=== PATIENT | male | born 1945 | race Caucasian/White ===

== ENCOUNTER 2017-10-19 16:15 | Inpatient (IN) | payer MEDICARE ==
[~2017-10-19] VITALS: Ht 182.9 cm; Wt 108.9 kg
[2017-10-19] MEDS ORDERED: METO50TA29 PO (18:08)
[2017-10-19] MEDS ORDERED: INSU100V13 SQ (18:08)
[2017-10-19] MEDS ORDERED: ATOR10TA60 PO (18:08)
[2017-10-19] MEDS ORDERED: ASPI81TA50 PO (18:08)
[2017-10-19] MEDS ORDERED: LISI1TAB5 PO (18:08)
[2017-10-19] MEDS ORDERED: ARIP30TA4 PO (18:08)
[2017-10-19] MEDS ORDERED: NICO1PAT27 TD (18:08)
[2017-10-19] MEDS ORDERED: LEVO75TA5 PO (18:08)
[2017-10-19] MEDS ORDERED: TAMS0.4C2 PO (18:08)
[2017-10-19] MEDS ORDERED: LOPE2CAP PO (18:08)
[2017-10-19] MEDS ORDERED: TIOT18CA IH (18:08)
[2017-10-19] MEDS ORDERED: MELA3TAB2 PO (18:08)
[2017-10-19] MEDS ORDERED: FURO20TA3 PO (18:08)
[2017-10-19] MEDS ORDERED: CLON0.3T PO (18:08)
[2017-10-19] MEDS ORDERED: CLON0.5T3 PO (18:08)
[2017-10-19] MEDS ORDERED: METF500T4 PO (18:08)
[2017-10-19] MEDS ORDERED: CLOM50TA2 PO (18:08)
[2017-10-19] MEDS ORDERED: FENO135C PO (18:08)
[2017-10-19] MEDS ORDERED: CLON1TAB3 PO (20:45)
[2017-10-19] MEDS ORDERED: CLOM75CA2 PO (20:45)
[2017-10-20] MEDS ORDERED: ACETAMINOPHEN 325 MG TABLET PO PRN (00:30)
[2017-10-20] MEDS ORDERED: LOPERAMIDE 2 MG CAPSULE PO PRN (00:30)
[2017-10-20] MEDS ORDERED: MAG HYDROX/AL HYDROX/SIMETH 30 ML ORAL.SUSP PO PRN (00:30)
[2017-10-20] MEDS ORDERED: MAGNESIUM HYDROXIDE 2,400 MG/30 ML ORAL.SUSP. PO PRN (00:30)
[2017-10-20] MEDS ORDERED: METHYL SALICYLATE/MENTHOL TOPICAL OINTMENT 29GM TUBE. TP PRN (00:30)
[2017-10-20] MEDS: clonazePAM 1 MG TABLET PO PRN ×4 (00:51→21:20)
[2017-10-20] MEDS: MELATONIN 3 MG TABLET PO PRN (00:52)
[2017-10-20 01:11] VITALS: BP 167/65
[2017-10-20 01:12] VITALS: BP 150/82
[2017-10-20 02:54] LABS: BACTERIA,URINE 0 /HPF (0-FEW); BILIRUBIN,URINE NEG (NEG); CLARITY,URINE CLEAR; COLOR,URINE YELLOW; GLUCOSE,URINE NEG (NEG); NITRITE,URINE NEG (NEG); RBC,URINE 0 /HPF (0-2); SQUAMOUS EPITHELIAL CELL,UR OCC /LPF; UROBILINOGEN,URINE 0.2 mg/dL (0.2 mg/dL); WBC,URINE 0 /HPF (0-4)
[2017-10-20] MEDS: LEVOTHYROXINE 75 MCG TABLET PO SCH (05:48)
[2017-10-20 06:08] VITALS: BP 176/82
--- NOTE | 2017-10-20 06:47 | EKG ---
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
[2017-10-20] MEDS: IPRATRPIUM/ALBUTEROL 0.5/2.5MG 3 ML NEBU. NEB SCH ×4 (08:00→20:46)
[2017-10-20] MEDS: hydroCHLOROthiazide 12.5 MG CAPSULE PO SCH ×2 (08:01→20:31)
[2017-10-20] MEDS: metFORMIN 500 MG TABLET PO SCH ×2 (08:01→18:20)
[2017-10-20] MEDS: TAMSULOSIN 0.4 MG CAP.ER.24H. PO SCH (08:01)
[2017-10-20] MEDS: ASPIRIN ENTERIC COATED 81 MG TABLET.DR. PO SCH (08:01)
[2017-10-20] MEDS: FUROSEMIDE 20 MG TABLET PO SCH (08:01)
[2017-10-20] MEDS: LISINOPRIL 20 MG TABLET PO SCH ×2 (08:01→20:31)
[2017-10-20] MEDS: METOPROLOL TART IMMED RELEASE 50 MG TABLET PO SCH ×2 (08:01→20:31)
[2017-10-20] MEDS: ARIPiprazole 15 MG TABLET PO SCH (08:02)
[2017-10-20] MEDS: NICOTINE 7MG PATCH. TD SCH (08:02)
[2017-10-20] MEDS ORDERED: cloNIDine HCL 0.1 MG TABLET PO SCH (09:00)
[2017-10-20] MEDS ORDERED: NON FORMULARY ITEM (Tiotropium Bromide (Spiriva) 18 MCG) IH SCH (09:00)
[2017-10-20] MEDS: CLOMIPRAMINE HCL 25 MG PO SCH (09:21)
[2017-10-20] MEDS: INSULIN DETEMIR 300 UNITS/3 ML INSULN.PEN. SQ SCH ×2 (09:29→20:55)
[2017-10-20 11:16] LABS: BASO % 1 % (0-3); EOS # 0.1 x10^3/uL (0.0-0.7); EOS % 1 % (0-3); HEMATOCRIT 34.7 % (39.0-53.0); HEMOGLOBIN 11.9 g/dL (13.0-17.5); LYMPH # 0.4 x10^3/uL (1.0-4.8); LYMPH % 8 % (24-48); MEAN CORPUSCULAR HEMOGLOBIN 28 pg (25-35); MEAN CORPUSCULAR HGB CONC 34 g/dL (31-37); MEAN CORPUSCULAR VOLUME 80 fL (79-100); MONO # 0.3 x10^3/uL (0.0-1.1); MONO % 6 % (0-9); NEUT # 4.3 x10^3uL (1.8-7.7); NEUT % 85 % (31-73); PLATELET COUNT 182 x10^3/uL (140-400); RED BLOOD COUNT 4.32 x10^6/uL (4.30-5.70); RED CELL DISTRIBUTION WIDTH 16.4 % (11.5-14.5)
[2017-10-20 11:30] LABS: ALBUMIN 3.4 g/dL (3.4-5.0); ALBUMIN/GLOBULIN RATIO 0.8 (1.0-1.7); CALCIUM 9.5 mg/dL (8.5-10.1); CREATININE 1.1 mg/dL (0.7-1.3); MAGNESIUM 1.9 mg/dL (1.8-2.4); POTASSIUM 3.8 mmol/L (3.5-5.1); TOTAL BILIRUBIN 0.2 mg/dL (0.2-1.0); TOTAL PROTEIN 7.6 g/dL (6.4-8.2)
[2017-10-20 14:21] LABS: THYROID STIM HORMONE (TSH) 3.12 uIU/mL (0.358-3.740)
[2017-10-20 16:16] VITALS: BP 156/75
[2017-10-20 17:09] LABS: T3 TOTAL 62 ng/dL (71-180); THYROXINE 6.5 ug/dL (4.5-12.0)
--- NOTE | 2017-10-20 20:02 | PDOC ---
Exam Note: Darren Note: Please also refer to the separate dictated note~for this date of service dictated separately.~Patient seen individually. Discussed the patient with Nursing staff reviewed the chart.~Reviewed interim history and current functioning. Reviewed vital signs,~Labs/ Radiology~and current medications noted below. Continue current treatment with the changes noted in the dictated addendum note Assessment: Vital Signs: Vital Signs Date Time Temp Pulse Resp B/P (MAP) Pulse Ox O2 Delivery O2 Flow Rate FiO2 10/20/17 16:16 97.4 70 19 156/75 (102) 96 10/20/17 10:23 Room Air Labs: Laboratory Tests Test 10/20/17 02:45 10/20/17 07:28 10/20/17 10:20 10/20/17 11:21 Urine Collection Type Void Urine Color Yellow Urine Clarity Clear Urine pH 7.0 Urine Specific Warden 1.020 Urine Protein >100 mg/dl (NEG-TRACE) Urine Glucose (UA) Neg mg/dL (NEG) Urine Ketones (Stick) Neg mg/dL (NEG) Urine Blood Neg (NEG) Urine Nitrite Neg (NEG) Urine Bilirubin Neg (NEG) Urine Urobilinogen Dipstick 0.2 mg/dL (0.2 mg/dL) Urine Leukocyte Esterase Neg (NEG) Urine RBC 0 /HPF (0-2) Urine WBC 0 /HPF (0-4) Urine Squamous Epithelial Cells Occ /LPF Urine Bacteria 0 /HPF (0-FEW) Glucose (Fingerstick) 66 mg/dL (70-99) L 228 mg/dL (70-99) H White Blood Count 5.0 x10^3/uL (4.0-11.0) Red Blood Count 4.32 x10^6/uL (4.30-5.70) Hemoglobin 11.9 g/dL (13.0-17.5) L Hematocrit 34.7 % (39.0-53.0) L Mean Corpuscular Volume 80 fL (79-100) Mean Corpuscular Hemoglobin 28 pg (25-35) Mean Corpuscular Hemoglobin Concent 34 g/dL (31-37) Red Cell Distribution Width 16.4 % (11.5-14.5) H Platelet Count 182 x10^3/uL (140-400) Neutrophils (%) (Auto) 85 % (31-73) H Lymphocytes (%) (Auto) 8 % (24-48) L Monocytes (%) (Auto) 6 % (0-9) Eosinophils (%) (Auto) 1 % (0-3) Basophils (%) (Auto) 1 % (0-3) Neutrophils # (Auto) 4.3 x10^3uL (1.8-7.7) Lymphocytes # (Auto) 0.4 x10^3/uL (1.0-4.8) L Monocytes # (Auto) 0.3 x10^3/uL (0.0-1.1) Eosinophils # (Auto) 0.1 x10^3/uL (0.0-0.7) Basophils # (Auto) 0.0 x10^3/uL (0.0-0.2) Sodium Level 136 mmol/L (136-145) Potassium Level 3.8 mmol/L (3.5-5.1) Chloride Level 99 mmol/L (98-107) Carbon Dioxide Level 30 mmol/L (21-32) Anion Gap 7 (6-14) Blood Urea Nitrogen 13 mg/dL (8-26) Creatinine 1.1 mg/dL (0.7-1.3) Estimated GFR (Cockcroft-Gault) 66.0 BUN/Creatinine Ratio 12 (6-20) Glucose Level 216 mg/dL (70-99) H Calcium Level 9.5 mg/dL (8.5-10.1) Magnesium Level 1.9 mg/dL (1.8-2.4) Iron Level 39 ug/dL (65-175) L Total Iron Binding Capacity 410 ug/dL (250-450) Iron Saturation 10 % (15-34) L Total Bilirubin 0.2 mg/dL (0.2-1.0) Aspartate Amino Transferase (AST) 17 U/L (15-37) Alanine Aminotransferase (ALT) 16 U/L (16-63) Alkaline Phosphatase 44 U/L (46-116) L Total Protein 7.6 g/dL (6.4-8.2) Albumin 3.4 g/dL (3.4-5.0) Albumin/Globulin Ratio 0.8 (1.0-1.7) L Triglycerides Level 265 mg/dL (0-150) H Cholesterol Level 137 mg/dL (0-200) LDL Cholesterol, Calculated 54 mg/dL (0-100) VLDL Cholesterol, Calculated 53 mg/dL (0-40) H Non-HDL Cholesterol Calculated 107 mg/dL (0-129) HDL Cholesterol 30 mg/dL (40-60) L Cholesterol/HDL Ratio 4.0 Thyroid Stimulating Hormone (TSH) 3.120 uIU/mL (0.358-3.740) Thyroxine (T4) 6.5 ug/dL (4.5-12.0) Total Triiodothyronine (TT3) 62 ng/dL (71-180) L RPR Titer Additional Testing Non reactive (Non Reactive) Test 10/20/17 16:55 10/20/17 19:17 Glucose (Fingerstick) 97 mg/dL (70-99) 147 mg/dL (70-99) H Current Medications: Meds: Current Medications Acetaminophen (Tylenol) 650 mg PRN Q6HRS PRN PO PAIN / TEMP; Start 10/20/17 at 00:30 Multi-Ingredient Ointment (Analgesic [place]) 1 stefanie PRN QID PRN TP MUSCLE PAIN; Start 10/20/17 at 00:30 Al Hydroxide/Mg Hydroxide (Mylanta Plus Xs) 15 ml PRN AFTMEALHC PRN PO DYSPEPSIA Last administered on 10/20/17 03:39; Start 10/20/17 at 00:30 Magnesium Hydroxide (Milk Of Magnesia) 2,400 mg PRN QHS PRN PO CONSTIPATION; Start 10/20/17 at 00:30 Clonazepam (KlonoPIN) 1 mg PRN TID PRN PO ANXIETY / AGITATION Last administered on 10/20/17 16:15; Start 10/20/17 at 00:30 Aripiprazole (Abilify) 30 mg DAILY PO Last administered on 10/20/17 08:02; Start 10/20/17 at 09:00 Melatonin 3 mg PRN QHS PRN PO INSOMNIA Last administered on 10/20/17 00:52; Start 10/20/17 at 01:00 Aspirin (Aspirin Enteric Coated) 81 mg DAILY PO Last administered on 08:01; Start 10/20/17 at 09:00 Atorvastatin Calcium (Lipitor) 10 mg QHS PO ; Start 10/20/17 at 21:00 Furosemide (Lasix) 20 mg DAILY PO Last administered on 10/20/17 08:01; Start 10/20/17 at 09:00 Levothyroxine Sodium (Synthroid) 75 mcg DAILY07 PO Last administered on 05:48; Start 10/20/17 at 07:00 Loperamide HCl (Imodium) 2 mg PRN Q2HR PRN PO DIARRHEA; Start 10/20/17 at 00: 30 Metformin HCl (Glucophage) 1,000 mg BIDWMEALS PO Last administered on 18:20; Start 10/20/17 at 08:00 Metoprolol Tartrate (Lopressor) 50 mg BID PO Last administered on 10/20/17 08 :01; Start 10/20/17 at 09:00 Nicotine (Nicoderm Cq 7mg) 1 patch DAILY TD Last administered on 10/20/17 08: 02; Start 10/20/17 at 09:00 Tamsulosin HCl (Flomax) 0.4 mg DAILY PO Last administered on 10/20/17 08:01; Start 10/20/17 at 09:00 Clomipramine HCl (Anafranil) 375 mg DAILY PO Last administered on 10/20/17 09 :21; Start 10/20/17 at 09:00 Clonidine HCl (Catapres) 0.3 mg BID PO Last administered on 10/20/17 08:02; Start 10/20/17 at 09:00; Stop 10/20/17 at 14:34; Status DC Fenofibrate (Tricor) 145 mg QHS PO ; Start 10/20/17 at 21:00 Insulin Detemir (Levemir) 110 units BID SQ Last administered on 10/20/17 09: 29; Start 10/20/17 at 09:00 Lisinopril (Prinivil) 20 mg BID PO Last administered on 10/20/17 08:01; Start 10/20/17 at 09:00 Non-Formulary Medication 18 mcg DAILY IH ; Start 10/20/17 at 09:00; Status UNV Hydrochlorothiazide (Microzide) 12.5 mg BID PO Last administered on 10/20/17 08:01; Start 10/20/17 at 09:00 Albuterol/ Ipratropium (Duoneb) 3 ml RTQID NEB Last administered on 12/10/17at 10:22; Start 10/20/17 at 08:00 Clonidine HCl (Catapres) 0.3 mg TID PO ; Start 10/20/17 at 21:00 Active Scripts Active Reported Clonazepam 1 Mg Tablet 1 Mg PO PRN TID PRN Clomipramine Hcl 75 Mg Capsule 375 Mg PO DAILY Melatonin 3 Mg Tablet 3 Mg PO PRN QHS PRN Loperamide (Loperamide Hcl) 2 Mg Capsule 2 Mg PO PRN Q2HR PRN MDD 16mg Spiriva (Tiotropium [place]) 18 Mcg Cap.w.dev 18 Mcg IH DAILY Furosemide 20 Mg Tablet 20 Mg PO DAILY Trilipix (Fenofibric Acid (Choline)) 135 Mg Capsule.dr 135 Mg PO HS Clonidine Hcl 0.3 Mg Tablet 0.3 Mg PO BID Atorvastatin Calcium 10 Mg Tablet 10 Mg PO QHS Aspir-Low (Aspirin) 81 Mg Tablet.dr 81 Mg PO DAILY Abilify (Aripiprazole) 30 Mg Tablet 30 Mg PO DAILY Tamsulosin Hcl 0.4 Mg Cap.er.24h 0.4 Mg PO DAILY NICODERM CQ 7mg (Nicotine) 1 Each Patch.td24 1 Patch TD DAILY Metoprolol Succinate ( Xl ) (Metoprolol Succinate) 50 Mg Tab.er.24h 50 Mg PO BID Metformin Hcl 500 Mg Tablet 1,000 Mg PO BIDWMEALS Levothyroxine Sodium 75 Mcg Tablet 75 Mcg PO DAILY07 Levemir (Insulin Detemir) 100 Unit/1 Ml Vial 110 Unit SQ BID Lisinopril-Hctz 20-12.5 Mg Tab (Lisinopril/Hydrochlorothiazide) 1 Each Tablet 1 Tab PO BID I have reviewed the current psychotropics carefully including drug interactions. Risk benefit ratio favors no change other than as noted in my dictated progress note. Diagnosis: Problems: (1) Major depressive disorder, recurrent episode LYNSEY COPELAND MD Oct 20, 2017 20:02
[2017-10-20] MEDS: cloNIDine HCL 0.1 MG TABLET PO SCH (20:30)
[2017-10-20] MEDS: ATORVASTATIN CALCIUM 10 MG TABLET. PO SCH (20:33)
[2017-10-20] MEDS: FENOFIBRATE NANOCRYSTALLIZED 145 MG TABLET PO SCH (20:33)
--- NOTE | 2017-10-20 22:49 | HP ---
ADMIT DATE: 10/20/2017 This note covers elements not covered in my initial note 10/20/2017. The patient was seen individually evening of 10/20/2017. Previously discussed with nursing staff several times, both prior to the patient's admission to review admission criteria since then. As the patient has been intermittently agitated and Zyprexa was added p.r.n. IDENTIFYING DATA: The patient is 72-year-old male referred to us from [facility] where he presented following an overdose of 35-40 tablets of tramadol. He has been increasingly anxious, obsessive, states he has not been taking his Anafranil for a few days. Symptoms have been getting worse with his mood, anxiety, thus prompting the overdose in a suicide attempt. CHIEF COMPLAINT: "Yes, I became depressed because I was not taking my medications. I need to get back on them, I will be better." HISTORY OF PRESENT ILLNESS: Reportedly, the patient has been followed at the [facility] for a long time by Dr. Anabelle Mauro and his primary care physician, Dr. Desire Benjamin. From the information available to me the patient lives at home with his and adult son and the son has had increasing psychosocial problems including substance abuse, which has been very overwhelming for the patient. In addition, he has been noncompliant with his psychotropics and became progressively depressed with sleep and appetite changes made the above "serious overdose attempt. No clear history of bipolar disorder or homicidal ideation. Cognitively, he has been reasonably intact other than some short term memory deficits. PAST PSYCHIATRIC HISTORY: As above. MEDICAL HISTORY: Hypertension, diabetes mellitus, COPD, history of PTSD, hypothyroidism, hyperlipidemia. Rectal cancer with colostomy, lung cancer, left lower lobe lobectomy, melanoma. History of alcohol abuse with 30 years of sobriety history of lymphedema. Accu-Cheks a.c. and at bedtime. DIET: Regular, takes his medications whole. Code status is full. DRUG ALLERGIES: Negative. CURRENT PSYCHOTROPICS: Abilify 30 mg a day, imipramine 375 mg daily and we will check a blood level Klonopin 1 mg t.i.d. p.r.n., melatonin 3 mg at bedtime p.r.n. FAMILY HISTORY: Noncontributory. SOCIAL HISTORY: Alcohol history noted above. Living arrangements noted above. He has another son who is an adult and not living with the patient. The patient is a from the [place]. MENTAL STATUS EXAM: The patient was seen individually. Ambulates with a walker reasonably oriented. Speech is coherent, had some latency. Abstraction fair, computation impaired, language function intact, attention span short. Mood and affect somewhat obsessive, anxious, depressed. No active suicidal or homicidal ideation. Attention span short. Language function intact. LABORATORY DATA: Reviewed. IMPRESSION: Major depressive disorder, recurrent, status post suicide attempt, but has a history of obsessive-compulsive disorder; anxiety disorder, unspecified; impulse control disorder, unspecified. Rest as above. PLAN: Admit to Geropsychiatry unit at [facility]. I will see the patient daily individually from a psychiatric standpoint. Continue current psychotropics check clomipramine blood level. Consider adjusting as needed. Consider a mood stabilizer. Medical followup with Dr. Juarez/Dr. Swanson. MAN Rosalino COPELAND MD DR: JEANNIE/nts JOB#: [id number] / [id number]
[2017-10-20 23:08] LABS: HEMOGLOBIN A1C 7.6 % (4.8-5.6)
--- NOTE | 2017-10-21 01:05 | CONS ---
DATE OF CONSULTATION: 10/20/2017 REASON FOR CONSULTATION: Medical management. HISTORY OF PRESENT ILLNESS: The patient is a 72-year-old male patient who apparently was admitted to [facility] following an intentional overdose and tramadol. He reports that he took about 35-40 tablets stating that he wanted to . According to the patient, he has been experiencing much anxiety, difficulty sleeping. He has a history of obsessive-compulsive disorder along with anxiety. He reports an obsession with tenriism. He had to dislike and disbelieve of tenriism. He reports that once had had a __ that were religiously preoccupied and that he confused him. His Mi was also present in the room. Mi reports that the patient did stop taking medication and he became increasingly anxious prior to admission, and basically after stabilization, he was transferred to [facility] for inpatient psychiatric stabilization. PAST MEDICAL HISTORY: Significant for hypertension, type 2 diabetes, COPD, hypothyroidism, hyperlipidemia, rectal cancer, status post colostomy, lung cancer, status post left lower lobe lobectomy, has melanoma and history of alcohol abuse; however, he is sober for the last 30 years. Also has lymphedema. PAST PSYCHIATRIC HISTORY: As history significant for depression, anxiety, posttraumatic stress disorder and severe obsessive compulsive disorder. PAST SURGICAL HISTORY: Significant for left lower lobe lobectomy, partial colectomy and colostomy. ALLERGIES: He has no known drug allergies. FAMILY HISTORY: Positive for mood disorder both in his mother and father. His mother of Alzheimer disease and father of a heart attack. SOCIAL HISTORY: The patient lives with his and they have 2 grown sons. He is retired and he served as a marine. He served actually in [place] [employer]. MEDICATIONS: He is currently on following medications: He is on Abilify 30 mg once a day, aspirin 81 mg once a day, atorvastatin calcium 10 mg at bedtime, clomipramine 375 mg once a day, clonazepam 1 mg 3 times a day, clonidine 0.3 mg twice a day, fenofibric acid (Trilipix) 135 mg at bedtime, furosemide 20 mg once a day, Levemir insulin 110 units subcutaneously twice a day, levothyroxine sodium 75 mcg once a day, lisinopril/hydrochlorothiazide 20/12.5 mg twice a day, loperamide 2 mg every 2 hours as needed, melatonin 3 mg at bedtime, metformin 1000 mg twice a day with meals, metoprolol succinate 50 mg once a day and Nicoderm patch was 70 mg topically once a day, and tamsulosin 0.4 mg at bedtime and Spiriva [place] 1 inhalation once a day. REVIEW OF SYSTEMS: The patient denied any blurring of vision, cataract, glaucoma or macular degeneration. Denied any earache, tinnitus or sensorineural deafness. Denied any nosebleeds, stuffy nose or postnasal drip. Denied any sore throat, sore tongue, toothache, hoarseness of voice or difficulty swallowing. Denied any nausea, vomiting, diarrhea or constipation. Denied any hematemesis, melena or hematochezia. Denied any dysuria, frequency or hematuria. Denied any chest pain, shortness of breath, orthopnea, paroxysmal nocturnal dyspnea. Denied any cough, phlegm or hemoptysis. Denied any chills, rigors or fever. PHYSICAL EXAMINATION: GENERAL: When I examined him, he was sitting comfortably in his chair in no apparent respiratory distress, slightly pale, but no jaundice, cyanosis, or thyromegaly. No jugular venous distension. No limb edema. VITAL SIGNS: His heart rate was 58, blood pressure 176/82, his temperature was 98.6, respiratory rate was 16, and oxygen saturation was 97%. HEAD, EYES, EARS, NOSE AND THROAT: Showed normocephalic, atraumatic. NECK: Supple. HEART: Showed normal first and second heart sounds with no gallop, rub or murmur. CHEST: Clear to auscultation. No crepitation or rhonchi. ABDOMEN: Distended, soft with colostomy in the left lower quadrant. There is no guarding or rigidity. No organomegaly. All hernial orifices intact. Bowel sounds normal. NEUROLOGIC: He was awake, alert, responding appropriately. Her cranial nerves intact. EXTREMITIES: She moves extremities without difficulty, ambulates with a walker. LABORATORY DATA: Showed that his white cell count was 5000, hemoglobin 12, hematocrit 35, MCV 80 and platelet count of 182,000. His serum sodium was 136, potassium 3.8, chloride 99, bicarbonate 30, anion gap of 7, BUN 13, creatinine 1.1, estimated GFR was 66 mL per minute. His glucose was 216, calcium was 9.5, magnesium was 1.9. Serum iron was 39, TIBC was 410 and percent saturation was 10%. Total bilirubin, AST, ALT, alkaline phosphatase were normal. Total protein was 7.6, albumin 3.4. His serum triglycerides 165, total cholesterol 137, LDL was 54, VLDL was 53, HDL cholesterol was 30, ratio was 4. TSH was 3.120. His urinalysis was essentially unremarkable. The urine was yellow, clear with a pH of 7, specific gravity 1.020. There is a moderate amount of protein. The urine was negative for glucose, ketones, blood, nitrite, bilirubin and leukocyte esterase. There are no wbc's, no rbc's, no bacteria. IMPRESSION: In summary, this is a 72-year-old male patient who was admitted on account of overdose on tramadol. He apparently took about 35-40 tablets in a suicidal attempt due to increased anxiety and obsessive compulsive disorder. He apparently has a multitude of medical problems including hypertension, diabetes, COPD, hypothyroidism, hyperlipidemia. He survived with rectal cancer. He has had colostomy. He also has survived with lung cancer, status post left lower lobe lobectomy and melanoma that was resected. All in all, he seemed to be medically stable. His blood pressure is suboptimally controlled. He is on hydrochlorothiazide, lisinopril, clonidine, and we could increase his clonidine to 0.3 mg 3 times a day and he is also on Toprol that can be increased. Thank you Dr. Ackerman for allowing me to participate in the care of this patient. JAQUELINE PENALOZA MD DR: ALISHA/dheeraj JOB#: [id number] / [id number]
[2017-10-21] MEDS: LEVOTHYROXINE 75 MCG TABLET PO SCH (05:18)
[2017-10-21] MEDS: IPRATRPIUM/ALBUTEROL 0.5/2.5MG 3 ML NEBU. NEB SCH ×4 (05:49→19:48)
[2017-10-21 05:53] VITALS: BP 183/83
--- NOTE | 2017-10-21 07:39 | RAD ---
CT of the head without contrast, 10/20/2017: History: Mental status change There is moderate bilateral cerebral atrophy. The ventricles are within normal limits in size. There is no shift of the midline structures. There is no evidence of acute intracranial hemorrhage or mass effect. IMPRESSION: 1. Cerebral atrophy. 2. No acute intracranial abnormality is detected. PQRS Compliance Statement: One or more of the following individualized dose reduction techniques were utilized for this examination: 1. Automated exposure control 2. Adjustment of the mA and/or kV according to patient size 3. Use of iterative reconstruction technique
[2017-10-21] MEDS: ASPIRIN ENTERIC COATED 81 MG TABLET.DR. PO SCH (08:13)
[2017-10-21] MEDS: METOPROLOL TART IMMED RELEASE 50 MG TABLET PO SCH ×2 (08:13→20:48)
[2017-10-21] MEDS: hydroCHLOROthiazide 12.5 MG CAPSULE PO SCH ×2 (08:13→20:47)
[2017-10-21] MEDS: TAMSULOSIN 0.4 MG CAP.ER.24H. PO SCH (08:13)
[2017-10-21] MEDS: FUROSEMIDE 20 MG TABLET PO SCH (08:13)
[2017-10-21] MEDS: LISINOPRIL 20 MG TABLET PO SCH ×2 (08:14→20:47)
[2017-10-21] MEDS: ARIPiprazole 15 MG TABLET PO SCH (08:14)
[2017-10-21] MEDS: metFORMIN 500 MG TABLET PO SCH ×2 (08:14→16:52)
[2017-10-21] MEDS: NICOTINE 7MG PATCH. TD SCH (08:14)
[2017-10-21] MEDS: cloNIDine HCL 0.1 MG TABLET PO SCH ×3 (08:15→20:47)
[2017-10-21] MEDS: CLOMIPRAMINE HCL 25 MG PO SCH (09:34)
[2017-10-21] MEDS: INSULIN DETEMIR 300 UNITS/3 ML INSULN.PEN. SQ SCH ×2 (09:37→20:52)
[2017-10-21] MEDS: clonazePAM 1 MG TABLET PO PRN ×2 (13:57→21:07)
[2017-10-21 15:55] VITALS: BP 168/76
[2017-10-21] MEDS ORDERED: CHOLECALCIFEROL (VITAMIN D3) 50,000 UNIT CAPSULE PO SCH (17:30)
[2017-10-21] MEDS: CYANOCOBALAMIN (VITAMIN B-12) 1,000 MCG/ML VIAL IM SCH (17:55)
[2017-10-21] MEDS: ATORVASTATIN CALCIUM 10 MG TABLET. PO SCH (20:47)
[2017-10-21] MEDS: FENOFIBRATE NANOCRYSTALLIZED 145 MG TABLET PO SCH (20:47)
[2017-10-21] MEDS: traZODone 50 MG TABLET. PO SCH (20:52)
--- NOTE | 2017-10-21 21:24 | PDOC ---
Exam Note: Darren Note: Please also refer to the separate dictated note~for this date of service dictated separately.~Patient seen individually. Discussed the patient with Nursing staff reviewed the chart.~Reviewed interim history and current functioning. Reviewed vital signs,~Labs/ Radiology~and current medications noted below. Continue current treatment with the changes noted in the dictated addendum note Assessment: Vital Signs: Vital Signs Date Time Temp Pulse Resp B/P (MAP) Pulse Ox O2 Delivery O2 Flow Rate FiO2 10/21/17 20:48 58 168/76 10/21/17 19:48 99 Room Air 10/21/17 15:55 98.0 16 I&O Intake and Output 10/21/17 07:00 Intake Total 1440 ml Output Total 200 ml Balance 1240 ml Intake Oral 1440 ml Output Stool Total 200 ml Labs: Laboratory Tests Test 10/21/17 07:27 10/21/17 07:56 10/21/17 09:31 10/21/17 11:06 Glucose (Fingerstick) 47 mg/dL (70-99) L 65 mg/dL (70-99) L 158 mg/dL (70-99) H 146 mg/dL (70-99) H Test 10/21/17 16:32 10/21/17 19:19 Glucose (Fingerstick) 106 mg/dL (70-99) H 143 mg/dL (70-99) H Current Medications: Meds: Current Medications Acetaminophen (Tylenol) 650 mg PRN Q6HRS PRN PO PAIN / TEMP; Start 10/20/17 at 00:30 Multi-Ingredient Ointment (Analgesic [place]) 1 stefanie PRN QID PRN TP MUSCLE PAIN; Start 10/20/17 at 00:30 Al Hydroxide/Mg Hydroxide (Mylanta Plus Xs) 15 ml PRN AFTMEALHC PRN PO DYSPEPSIA Last administered on 10/20/17 03:39; Start 10/20/17 at 00:30 Magnesium Hydroxide (Milk Of Magnesia) 2,400 mg PRN QHS PRN PO CONSTIPATION; Start 10/20/17 at 00:30 Clonazepam (KlonoPIN) 1 mg PRN TID PRN PO ANXIETY / AGITATION Last administered on 10/21/17 21:07; Start 10/20/17 at 00:30 Aripiprazole (Abilify) 30 mg DAILY PO Last administered on 10/21/17 08:14; Start 10/20/17 at 09:00 Melatonin 3 mg PRN QHS PRN PO INSOMNIA Last administered on 10/20/17 00:52; Start 10/20/17 at 01:00 Aspirin (Aspirin Enteric Coated) 81 mg DAILY PO Last administered on 08:13; Start 10/20/17 at 09:00 Atorvastatin Calcium (Lipitor) 10 mg QHS PO Last administered on 10/21/17 20: 47; Start 10/20/17 at 21:00 Furosemide (Lasix) 20 mg DAILY PO Last administered on 10/21/17 08:13; Start 10/20/17 at 09:00 Levothyroxine Sodium (Synthroid) 75 mcg DAILY07 PO Last administered on 05:18; Start 10/20/17 at 07:00 Loperamide HCl (Imodium) 2 mg PRN Q2HR PRN PO DIARRHEA; Start 10/20/17 at 00: 30 Metformin HCl (Glucophage) 1,000 mg BIDWMEALS PO Last administered on 16:52; Start 10/20/17 at 08:00 Metoprolol Tartrate (Lopressor) 50 mg BID PO Last administered on 10/21/17 20 :48; Start 10/20/17 at 09:00 Nicotine (Nicoderm Cq 7mg) 1 patch DAILY TD Last administered on 10/21/17 08: 14; Start 10/20/17 at 09:00 Tamsulosin HCl (Flomax) 0.4 mg DAILY PO Last administered on 10/21/17 08:13; Start 10/20/17 at 09:00 Clomipramine HCl (Anafranil) 375 mg DAILY PO Last administered on 10/21/17 09 :34; Start 10/20/17 at 09:00; Stop 10/21/17 at 13:57; Status DC Clonidine HCl (Catapres) 0.3 mg BID PO Last administered on 10/20/17 08:02; Start 10/20/17 at 09:00; Stop 10/20/17 at 14:34; Status DC Fenofibrate (Tricor) 145 mg QHS PO Last administered on 10/21/17 20:47; Start 10/20/17 at 21:00 Insulin Detemir (Levemir) 110 units BID SQ Last administered on 10/21/17 09: 37; Start 10/20/17 at 09:00; Stop 10/21/17 at 17:23; Status DC Lisinopril (Prinivil) 20 mg BID PO Last administered on 10/21/17 20:47; Start 10/20/17 at 09:00 Non-Formulary Medication 18 mcg DAILY IH ; Start 10/20/17 at 09:00; Status UNV Hydrochlorothiazide (Microzide) 12.5 mg BID PO Last administered on 10/21/17 20:47; Start 10/20/17 at 09:00 Albuterol/ Ipratropium (Duoneb) 3 ml RTQID NEB Last administered on 10/21/17 19:48; Start 10/20/17 at 08:00 Clonidine HCl (Catapres) 0.3 mg TID PO Last administered on 10/21/17 20:47; Start 10/20/17 at 21:00 Non-Formulary Medication 5 ea DAILY PO ; Start 10/22/17 at 09:00 Prenat Multivit/ Grainger/Iron/Folic Ac (Multivitamin ) 1 tab DAILYBFRLUN PO ; Start 10/22/17 at 11:30 Cyanocobalamin (Vitamin B-12) 1,000 mcg DAILY IM Last administered on 17:55; Start 10/21/17 at 17:30; Stop 10/26/17 at 17:29 Cyanocobalamin (Vitamin B-12) 1,000 mcg [id number] IM ; Start 11/18/17 at 09:00 Vitamin D (Vitamin D3) 50,000 unit WEEKLY PO Last administered on 10/21/17 17 :54; Start 10/21/17 at 17:30 Insulin Detemir (Levemir) 90 units BID SQ Last administered on 10/21/17 20:52 ; Start 10/21/17 at 21:00 Trazodone HCl (Desyrel) 50 mg QHS PO Last administered on 10/21/17 20:52; Start 10/21/17 at 21:00 Trazodone HCl (Desyrel) 50 mg PRN QHS PRN PO INSOMNIA; Start 10/21/17 at 18:30 Active Scripts Active Reported Clonazepam 1 Mg Tablet 1 Mg PO PRN TID PRN Clomipramine Hcl 75 Mg Capsule 375 Mg PO DAILY Melatonin 3 Mg Tablet 3 Mg PO PRN QHS PRN Loperamide (Loperamide Hcl) 2 Mg Capsule 2 Mg PO PRN Q2HR PRN MDD 16mg Spiriva (Tiotropium [place]) 18 Mcg Cap.w.dev 18 Mcg IH DAILY Furosemide 20 Mg Tablet 20 Mg PO DAILY Trilipix (Fenofibric Acid (Choline)) 135 Mg Capsule.dr 135 Mg PO HS Clonidine Hcl 0.3 Mg Tablet 0.3 Mg PO BID Atorvastatin Calcium 10 Mg Tablet 10 Mg PO QHS Aspir-Low (Aspirin) 81 Mg Tablet.dr 81 Mg PO DAILY Abilify (Aripiprazole) 30 Mg Tablet 30 Mg PO DAILY Tamsulosin Hcl 0.4 Mg Cap.er.24h 0.4 Mg PO DAILY NICODERM CQ 7mg (Nicotine) 1 Each Patch.td24 1 Patch TD DAILY Metoprolol Succinate ( Xl ) (Metoprolol Succinate) 50 Mg Tab.er.24h 50 Mg PO BID Metformin Hcl 500 Mg Tablet 1,000 Mg PO BIDWMEALS Levothyroxine Sodium 75 Mcg Tablet 75 Mcg PO DAILY07 Levemir (Insulin Detemir) 100 Unit/1 Ml Vial 110 Unit SQ BID Lisinopril-Hctz 20-12.5 Mg Tab (Lisinopril/Hydrochlorothiazide) 1 Each Tablet 1 Tab PO BID I have reviewed the current psychotropics carefully including drug interactions. Risk benefit ratio favors no change other than as noted in my dictated progress note. Diagnosis: Problems: (1) Major depressive disorder, recurrent episode LYNSEY COPELAND MD Oct 21, 2017 21:24
[2017-10-22] MEDS: MELATONIN 3 MG TABLET PO PRN (00:48)
[2017-10-22] MEDS: traZODone 50 MG TABLET. PO SCH (00:48)
[2017-10-22 05:55] VITALS: BP 152/67
[2017-10-22] MEDS: LEVOTHYROXINE 75 MCG TABLET PO SCH (05:57)
[2017-10-22] MEDS: IPRATRPIUM/ALBUTEROL 0.5/2.5MG 3 ML NEBU. NEB SCH ×4 (08:00→20:30)
[2017-10-22] MEDS: ASPIRIN ENTERIC COATED 81 MG TABLET.DR. PO SCH (08:04)
[2017-10-22] MEDS: metFORMIN 500 MG TABLET PO SCH ×2 (08:04→16:44)
[2017-10-22] MEDS: ARIPiprazole 15 MG TABLET PO SCH (08:04)
[2017-10-22] MEDS: FUROSEMIDE 20 MG TABLET PO SCH (08:05)
[2017-10-22] MEDS: cloNIDine HCL 0.1 MG TABLET PO SCH ×3 (08:05→19:24)
[2017-10-22] MEDS: hydroCHLOROthiazide 12.5 MG CAPSULE PO SCH ×2 (08:05→19:24)
[2017-10-22] MEDS: TAMSULOSIN 0.4 MG CAP.ER.24H. PO SCH (08:05)
[2017-10-22] MEDS: LISINOPRIL 20 MG TABLET PO SCH ×2 (08:05→19:24)
[2017-10-22] MEDS: CYANOCOBALAMIN (VITAMIN B-12) 1,000 MCG/ML VIAL IM SCH (08:06)
[2017-10-22] MEDS: NICOTINE 7MG PATCH. TD SCH (08:07)
[2017-10-22] MEDS: METOPROLOL TART IMMED RELEASE 50 MG TABLET PO SCH ×2 (08:11→19:22)
[2017-10-22] MEDS: INSULIN DETEMIR 300 UNITS/3 ML INSULN.PEN. SQ SCH ×2 (08:12→19:59)
[2017-10-22] MEDS ORDERED: CLOMIPRAMINE 75 MG PO SCH (09:00)
[2017-10-22] MEDS ORDERED: CLOMIPRAMINE HCL 75 MG ONE (09:00)
[2017-10-22] MEDS: clonazePAM 1 MG TABLET PO PRN ×2 (09:21→19:40)
[2017-10-22] MEDS: PRENATAL MULTIVITAMIN TABLET. PO SCH (11:38)
[2017-10-22 16:04] VITALS: BP 127/68
[2017-10-22] MEDS: ATORVASTATIN CALCIUM 10 MG TABLET. PO SCH (19:22)
[2017-10-22] MEDS: traZODone 50 MG TABLET. PO PRN (19:23)
[2017-10-22] MEDS: FENOFIBRATE NANOCRYSTALLIZED 145 MG TABLET PO SCH (19:26)
[2017-10-22] MEDS: DIVALPROEX ER 500 MG TAB.ER.24H PO SCH (19:33)
--- NOTE | 2017-10-22 22:07 | PDOC ---
Exam Note: Darren Note: Please also refer to the separate dictated note~for this date of service dictated separately.~Patient seen individually. Discussed the patient with Nursing staff reviewed the chart.~Reviewed interim history and current functioning. Reviewed vital signs,~Labs/ Radiology~and current medications noted below. Continue current treatment with the changes noted in the dictated addendum note Assessment: Vital Signs: Vital Signs Date Time Temp Pulse Resp B/P (MAP) Pulse Ox O2 Delivery O2 Flow Rate FiO2 10/22/17 21:11 98 10/22/17 19:24 88 127/68 10/22/17 16:04 98.1 16 10/22/17 10:13 Room Air I&O Intake and Output 10/22/17 07:00 Intake Total 1395 ml Balance 1395 ml Intake Oral 1395 ml # Bowel Movements 2 Labs: Laboratory Tests Test 10/22/17 07:30 10/22/17 11:20 10/22/17 16:28 10/22/17 19:09 Glucose (Fingerstick) 97 mg/dL (70-99) 240 mg/dL (70-99) H 134 mg/dL (70-99) H 160 mg/dL (70-99) H Current Medications: Meds: Current Medications Acetaminophen (Tylenol) 650 mg PRN Q6HRS PRN PO PAIN / TEMP; Start 10/20/17 at 00:30 Multi-Ingredient Ointment (Analgesic [place]) 1 stefanie PRN QID PRN TP MUSCLE PAIN; Start 10/20/17 at 00:30 Al Hydroxide/Mg Hydroxide (Mylanta Plus Xs) 15 ml PRN AFTMEALHC PRN PO DYSPEPSIA Last administered on 10/20/17 03:39; Start 10/20/17 at 00:30 Magnesium Hydroxide (Milk Of Magnesia) 2,400 mg PRN QHS PRN PO CONSTIPATION; Start 10/20/17 at 00:30 Clonazepam (KlonoPIN) 1 mg PRN TID PRN PO ANXIETY / AGITATION Last administered on 10/22/17 19:40; Start 10/20/17 at 00:30 Aripiprazole (Abilify) 30 mg DAILY PO Last administered on 10/22/17 08:04; Start 10/20/17 at 09:00 Melatonin 3 mg PRN QHS PRN PO INSOMNIA Last administered on 10/22/17 00:48; Start 10/20/17 at 01:00 Aspirin (Aspirin Enteric Coated) 81 mg DAILY PO Last administered on 08:04; Start 10/20/17 at 09:00 Atorvastatin Calcium (Lipitor) 10 mg QHS PO Last administered on 10/22/17 19: 22; Start 10/20/17 at 21:00 Furosemide (Lasix) 20 mg DAILY PO Last administered on 10/22/17 08:05; Start 10/20/17 at 09:00 Levothyroxine Sodium (Synthroid) 75 mcg DAILY07 PO Last administered on 05:57; Start 10/20/17 at 07:00 Loperamide HCl (Imodium) 2 mg PRN Q2HR PRN PO DIARRHEA; Start 10/20/17 at 00: 30 Metformin HCl (Glucophage) 1,000 mg BIDWMEALS PO Last administered on 16:44; Start 10/20/17 at 08:00 Metoprolol Tartrate (Lopressor) 50 mg BID PO Last administered on 10/22/17 19 :22; Start 10/20/17 at 09:00 Nicotine (Nicoderm Cq 7mg) 1 patch DAILY TD Last administered on 10/22/17 08: 07; Start 10/20/17 at 09:00 Tamsulosin HCl (Flomax) 0.4 mg DAILY PO Last administered on 10/22/17 08:05; Start 10/20/17 at 09:00 Clomipramine HCl (Anafranil) 375 mg DAILY PO Last administered on 10/21/17 09 :34; Start 10/20/17 at 09:00; Stop 10/21/17 at 13:57; Status DC Clonidine HCl (Catapres) 0.3 mg BID PO Last administered on 10/20/17 08:02; Start 10/20/17 at 09:00; Stop 10/20/17 at 14:34; Status DC Fenofibrate (Tricor) 145 mg QHS PO Last administered on 10/22/17 19:26; Start 10/20/17 at 21:00 Insulin Detemir (Levemir) 110 units BID SQ Last administered on 10/21/17 09: 37; Start 10/20/17 at 09:00; Stop 10/21/17 at 17:23; Status DC Lisinopril (Prinivil) 20 mg BID PO Last administered on 10/22/17 19:24; Start 10/20/17 at 09:00 Non-Formulary Medication 18 mcg DAILY IH ; Start 10/20/17 at 09:00; Status UNV Hydrochlorothiazide (Microzide) 12.5 mg BID PO Last administered on 10/22/17 19:24; Start 10/20/17 at 09:00 Albuterol/ Ipratropium (Duoneb) 3 ml RTQID NEB Last administered on 10/22/17 10:12; Start 10/20/17 at 08:00 Clonidine HCl (Catapres) 0.3 mg TID PO Last administered on 10/22/17 19:24; Start 10/20/17 at 21:00 Non-Formulary Medication 5 ea DAILY PO Last administered on 10/22/17 08:06; Start 10/22/17 at 09:00; Stop 10/22/17 at 11:26; Status DC Prenat Multivit/ [place]/Iron/Folic Ac (Multivitamin ) 1 tab DAILYBFRLUN PO Last administered on 10/22/17 11:38; Start 10/22/17 at 11:30 Cyanocobalamin (Vitamin B-12) 1,000 mcg DAILY IM Last administered on 08:06; Start 10/21/17 at 17:30; Stop 10/26/17 at 17:29 Cyanocobalamin (Vitamin B-12) 1,000 mcg [id number] IM ; Start 11/18/17 at 09:00 Vitamin D (Vitamin D3) 50,000 unit WEEKLY PO Last administered on 10/21/17 17 :54; Start 10/21/17 at 17:30 Insulin Detemir (Levemir) 90 units BID SQ Last administered on 10/22/17 19:59 ; Start 10/21/17 at 21:00 Trazodone HCl (Desyrel) 50 mg QHS PO Last administered on 10/22/17 00:48; Start 10/21/17 at 21:00 Trazodone HCl (Desyrel) 50 mg PRN QHS PRN PO INSOMNIA Last administered on 19:23; Start 10/21/17 at 18:30 Clomipramine HCl (Anafranil) 375 mg DAILY PO ; Start 10/23/17 at 09:00 Clomipramine HCl (Anafranil) 375 mg STK-MED ONCE .ROUTE ; Start 10/22/17 at 09: 00; Stop 10/22/17 at 11:27; Status DC Divalproex Sodium (Depakote Er) 500 mg QHS PO Last administered on 10/22/17 19:33; Start 10/22/17 at 21:00 Active Scripts Active Reported Clonazepam 1 Mg Tablet 1 Mg PO PRN TID PRN Clomipramine Hcl 75 Mg Capsule 375 Mg PO DAILY Melatonin 3 Mg Tablet 3 Mg PO PRN QHS PRN Loperamide (Loperamide Hcl) 2 Mg Capsule 2 Mg PO PRN Q2HR PRN MDD 16mg Spiriva (Tiotropium [place]) 18 Mcg Cap.w.dev 18 Mcg IH DAILY Furosemide 20 Mg Tablet 20 Mg PO DAILY Trilipix (Fenofibric Acid (Choline)) 135 Mg Capsule.dr 135 Mg PO HS Clonidine Hcl 0.3 Mg Tablet 0.3 Mg PO BID Atorvastatin Calcium 10 Mg Tablet 10 Mg PO QHS Aspir-Low (Aspirin) 81 Mg Tablet.dr 81 Mg PO DAILY Abilify (Aripiprazole) 30 Mg Tablet 30 Mg PO DAILY Tamsulosin Hcl 0.4 Mg Cap.er.24h 0.4 Mg PO DAILY NICODERM CQ 7mg (Nicotine) 1 Each Patch.td24 1 Patch TD DAILY Metoprolol Succinate ( Xl ) (Metoprolol Succinate) 50 Mg Tab.er.24h 50 Mg PO BID Metformin Hcl 500 Mg Tablet 1,000 Mg PO BIDWMEALS Levothyroxine Sodium 75 Mcg Tablet 75 Mcg PO DAILY07 Levemir (Insulin Detemir) 100 Unit/1 Ml Vial 110 Unit SQ BID Lisinopril-Hctz 20-12.5 Mg Tab (Lisinopril/Hydrochlorothiazide) 1 Each Tablet 1 Tab PO BID I have reviewed the current psychotropics carefully including drug interactions. Risk benefit ratio favors no change other than as noted in my dictated progress note. Diagnosis: Problems: (1) Major depressive disorder, recurrent episode LYNSEY COPELAND MD Oct 22, 2017 22:07
[2017-10-23] MEDS: MELATONIN 3 MG TABLET PO PRN ×2 (01:20→22:52)
[2017-10-23] MEDS: traZODone 50 MG TABLET. PO PRN ×2 (01:20→22:52)
[2017-10-23] MEDS: IPRATRPIUM/ALBUTEROL 0.5/2.5MG 3 ML NEBU. NEB SCH ×4 (05:44→21:07)
[2017-10-23] MEDS: LEVOTHYROXINE 75 MCG TABLET PO SCH (05:48)
[2017-10-23 06:20] VITALS: BP 167/89
--- NOTE | 2017-10-23 07:50 | PN ---
DATE: 10/21/2017 This late entry 10/21/2017 covers elements not covered in my initial note 10/21/2017. Met with the patient in the evening of 10/21/2017. The patient called his only once during the day and then was calling her in the evening, took Klonopin at 2:00 p.m. for anxiety. QT corrected interval on the EKG is 467. Overall, during the day the patient has complained of some ongoing anxiety, obsessive thought processes. CT head shows cortical atrophy. REVIEW OF SYSTEMS: No CV, , pulmonary, eye, ENT system symptoms on review. Gait unsteady with walker. MENTAL STATUS EXAM: Reasonably oriented. Speech is coherent, abstraction fair, computation impaired, language function intact, attention span short. Mood and affect, somewhat anxious, at times labile. LABORATORY DATA: Reviewed. IMPRESSION: Major depressive disorder in partial remission, obsessive compulsive disorder, rule out bipolar 1 disorder, unspecified. Rest unchanged. PLAN: The patient slept just 4-1/4 hours previous evening. We will start trazodone 50 mg at bedtime scheduled, may repeat x 1 for insomnia. Maintain Abilify 30 mg a day, clomipramine 375 mg daily and the level is awaited, Klonopin 1 mg t.i.d. p.r.n., melatonin 3 mg at bedtime p.r.n. Consider adding Depakote as a mood stabilizer, but we will observe another day or so before deciding. LYNSEY COPELAND MD DR: JEANNIE/dheeraj JOB#: [id number] / [id number]
[2017-10-23] MEDS: cloNIDine HCL 0.1 MG TABLET PO SCH ×3 (09:22→19:56)
[2017-10-23] MEDS: metFORMIN 500 MG TABLET PO SCH ×2 (09:22→17:02)
[2017-10-23] MEDS: CYANOCOBALAMIN (VITAMIN B-12) 1,000 MCG/ML VIAL IM SCH (09:23)
[2017-10-23] MEDS: ARIPiprazole 15 MG TABLET PO SCH (09:23)
[2017-10-23] MEDS: TAMSULOSIN 0.4 MG CAP.ER.24H. PO SCH (09:24)
[2017-10-23] MEDS: NICOTINE 7MG PATCH. TD SCH (09:24)
[2017-10-23] MEDS: hydroCHLOROthiazide 12.5 MG CAPSULE PO SCH ×2 (09:24→19:57)
[2017-10-23] MEDS: ASPIRIN ENTERIC COATED 81 MG TABLET.DR. PO SCH (09:25)
[2017-10-23] MEDS: FUROSEMIDE 20 MG TABLET PO SCH (09:25)
[2017-10-23] MEDS: METOPROLOL TART IMMED RELEASE 50 MG TABLET PO SCH ×2 (09:25→19:56)
[2017-10-23] MEDS: LISINOPRIL 20 MG TABLET PO SCH ×2 (09:25→19:57)
[2017-10-23] MEDS: PRENATAL MULTIVITAMIN TABLET. PO SCH (09:27)
[2017-10-23] MEDS: CLOMIPRAMINE HCL 75 MG PO SCH (09:28)
[2017-10-23] MEDS: INSULIN DETEMIR 300 UNITS/3 ML INSULN.PEN. SQ SCH ×2 (09:29→20:00)
[2017-10-23 16:28] VITALS: BP 128/68
[2017-10-23] MEDS: clonazePAM 1 MG TABLET PO PRN (17:02)
[2017-10-23] MEDS: DIVALPROEX ER 500 MG TAB.ER.24H PO SCH (19:55)
[2017-10-23] MEDS: traZODone 50 MG TABLET. PO SCH (19:56)
[2017-10-23] MEDS: ATORVASTATIN CALCIUM 10 MG TABLET. PO SCH (19:56)
[2017-10-23] MEDS: FENOFIBRATE NANOCRYSTALLIZED 145 MG TABLET PO SCH (19:57)
--- NOTE | 2017-10-23 20:08 | PDOC ---
Exam Note: Darren Note: Please also refer to the separate dictated note~for this date of service dictated separately.~Patient seen individually. Discussed the patient with Nursing staff reviewed the chart.~Reviewed interim history and current functioning. Reviewed vital signs,~Labs/ Radiology~and current medications noted below. Continue current treatment with the changes noted in the dictated addendum note Assessment: Vital Signs: Vital Signs Date Time Temp Pulse Resp B/P (MAP) Pulse Ox O2 Delivery O2 Flow Rate FiO2 10/23/17 19:57 69 128/68 10/23/17 16:28 98.4 16 98 10/23/17 10:37 Room Air I&O Intake and Output 10/23/17 07:00 Intake Total 1320 ml Balance 1320 ml Intake Oral 1320 ml Labs: Laboratory Tests Test 10/23/17 07:22 10/23/17 07:53 10/23/17 08:21 10/23/17 11:34 Glucose (Fingerstick) 45 mg/dL (70-99) L 47 mg/dL (70-99) L 108 mg/dL (70-99) H 156 mg/dL (70-99) H Test 10/23/17 16:32 10/23/17 19:13 Glucose (Fingerstick) 106 mg/dL (70-99) H 133 mg/dL (70-99) H Current Medications: Meds: Current Medications Acetaminophen (Tylenol) 650 mg PRN Q6HRS PRN PO PAIN / TEMP; Start 10/20/17 at 00:30 Multi-Ingredient Ointment (Analgesic [place]) 1 stefanie PRN QID PRN TP MUSCLE PAIN; Start 10/20/17 at 00:30 Al Hydroxide/Mg Hydroxide (Mylanta Plus Xs) 15 ml PRN AFTMEALHC PRN PO DYSPEPSIA Last administered on 10/20/17 03:39; Start 10/20/17 at 00:30 Magnesium Hydroxide (Milk Of Magnesia) 2,400 mg PRN QHS PRN PO CONSTIPATION; Start 10/20/17 at 00:30 Clonazepam (KlonoPIN) 1 mg PRN TID PRN PO ANXIETY / AGITATION Last administered on 10/23/17 17:02; Start 10/20/17 at 00:30 Aripiprazole (Abilify) 30 mg DAILY PO Last administered on 10/23/17 09:23; Start 10/20/17 at 09:00 Melatonin 3 mg PRN QHS PRN PO INSOMNIA Last administered on 10/23/17 01:20; Start 10/20/17 at 01:00 Aspirin (Aspirin Enteric Coated) 81 mg DAILY PO Last administered on 09:25; Start 10/20/17 at 09:00 Atorvastatin Calcium (Lipitor) 10 mg QHS PO Last administered on 10/23/17 19: 56; Start 10/20/17 at 21:00 Furosemide (Lasix) 20 mg DAILY PO Last administered on 10/23/17 09:25; Start 10/20/17 at 09:00 Levothyroxine Sodium (Synthroid) 75 mcg DAILY07 PO Last administered on 05:48; Start 10/20/17 at 07:00 Loperamide HCl (Imodium) 2 mg PRN Q2HR PRN PO DIARRHEA; Start 10/20/17 at 00: 30 Metformin HCl (Glucophage) 1,000 mg BIDWMEALS PO Last administered on 17:02; Start 10/20/17 at 08:00 Metoprolol Tartrate (Lopressor) 50 mg BID PO Last administered on 10/23/17 19 :56; Start 10/20/17 at 09:00 Nicotine (Nicoderm Cq 7mg) 1 patch DAILY TD Last administered on 10/23/17 09: 24; Start 10/20/17 at 09:00 Tamsulosin HCl (Flomax) 0.4 mg DAILY PO Last administered on 10/23/17 09:24; Start 10/20/17 at 09:00 Clomipramine HCl (Anafranil) 375 mg DAILY PO Last administered on 10/21/17 09 :34; Start 10/20/17 at 09:00; Stop 10/21/17 at 13:57; Status DC Clonidine HCl (Catapres) 0.3 mg BID PO Last administered on 10/20/17 08:02; Start 10/20/17 at 09:00; Stop 10/20/17 at 14:34; Status DC Fenofibrate (Tricor) 145 mg QHS PO Last administered on 10/23/17 19:57; Start 10/20/17 at 21:00 Insulin Detemir (Levemir) 110 units BID SQ Last administered on 10/21/17 09: 37; Start 10/20/17 at 09:00; Stop 10/21/17 at 17:23; Status DC Lisinopril (Prinivil) 20 mg BID PO Last administered on 10/23/17 19:57; Start 10/20/17 at 09:00 Non-Formulary Medication 18 mcg DAILY IH ; Start 10/20/17 at 09:00; Status UNV Hydrochlorothiazide (Microzide) 12.5 mg BID PO Last administered on 10/23/17 19:57; Start 10/20/17 at 09:00 Albuterol/ Ipratropium (Duoneb) 3 ml RTQID NEB Last administered on 10/23/17 10:37; Start 10/20/17 at 08:00 Clonidine HCl (Catapres) 0.3 mg TID PO Last administered on 10/23/17 19:56; Start 10/20/17 at 21:00 Non-Formulary Medication 5 ea DAILY PO Last administered on 10/22/17 08:06; Start 10/22/17 at 09:00; Stop 10/22/17 at 11:26; Status DC Prenat Multivit/ [place]/Iron/Folic Ac (Multivitamin ) 1 tab DAILYBFRLUN PO Last administered on 10/23/17 09:27; Start 10/22/17 at 11:30 Cyanocobalamin (Vitamin B-12) 1,000 mcg DAILY IM Last administered on 09:23; Start 10/21/17 at 17:30; Stop 10/26/17 at 17:29 Cyanocobalamin (Vitamin B-12) 1,000 mcg [id number] IM ; Start 11/18/17 at 09:00 Vitamin D (Vitamin D3) 50,000 unit WEEKLY PO Last administered on 10/21/17 17 :54; Start 10/21/17 at 17:30 Insulin Detemir (Levemir) 90 units BID SQ Last administered on 10/22/17 19:59 ; Start 10/21/17 at 21:00; Stop 10/23/17 at 08:25; Status DC Trazodone HCl (Desyrel) 50 mg QHS PO Last administered on 10/23/17 19:56; Start 10/21/17 at 21:00 Trazodone HCl (Desyrel) 50 mg PRN QHS PRN PO INSOMNIA Last administered on 01:20; Start 10/21/17 at 18:30 Clomipramine HCl (Anafranil) 375 mg DAILY PO Last administered on 10/23/17 09 :28; Start 10/23/17 at 09:00 Clomipramine HCl (Anafranil) 375 mg STK-MED ONCE .ROUTE ; Start 10/22/17 at 09: 00; Stop 10/22/17 at 11:27; Status DC Divalproex Sodium (Depakote Er) 500 mg QHS PO Last administered on 10/23/17 19:55; Start 10/22/17 at 21:00 Insulin Detemir (Levemir) 75 units BID SQ Last administered on 10/23/17 20:00 ; Start 10/23/17 at 09:00 Active Scripts Active Reported Clonazepam 1 Mg Tablet 1 Mg PO PRN TID PRN Clomipramine Hcl 75 Mg Capsule 375 Mg PO DAILY Melatonin 3 Mg Tablet 3 Mg PO PRN QHS PRN Loperamide (Loperamide Hcl) 2 Mg Capsule 2 Mg PO PRN Q2HR PRN MDD 16mg Spiriva (Tiotropium [place]) 18 Mcg Cap.w.dev 18 Mcg IH DAILY Furosemide 20 Mg Tablet 20 Mg PO DAILY Trilipix (Fenofibric Acid (Choline)) 135 Mg Capsule.dr 135 Mg PO HS Clonidine Hcl 0.3 Mg Tablet 0.3 Mg PO BID Atorvastatin Calcium 10 Mg Tablet 10 Mg PO QHS Aspir-Low (Aspirin) 81 Mg Tablet.dr 81 Mg PO DAILY Abilify (Aripiprazole) 30 Mg Tablet 30 Mg PO DAILY Tamsulosin Hcl 0.4 Mg Cap.er.24h 0.4 Mg PO DAILY NICODERM CQ 7mg (Nicotine) 1 Each Patch.td24 1 Patch TD DAILY Metoprolol Succinate ( Xl ) (Metoprolol Succinate) 50 Mg Tab.er.24h 50 Mg PO BID Metformin Hcl 500 Mg Tablet 1,000 Mg PO BIDWMEALS Levothyroxine Sodium 75 Mcg Tablet 75 Mcg PO DAILY07 Levemir (Insulin Detemir) 100 Unit/1 Ml Vial 110 Unit SQ BID Lisinopril-Hctz 20-12.5 Mg Tab (Lisinopril/Hydrochlorothiazide) 1 Each Tablet 1 Tab PO BID I have reviewed the current psychotropics carefully including drug interactions. Risk benefit ratio favors no change other than as noted in my dictated progress note. Diagnosis: Problems: (1) Major depressive disorder, recurrent episode (2) Anxiety disorder (3) Impulse control disorder (4) Major depressive disorder, recurrent episode (5) Bipolar affective disorder, mixed LYNSEY COPELAND MD Oct 23, 2017 20:08
[2017-10-23] MEDS ORDERED: ACET325T9 PO (22:13)
[2017-10-23] MEDS ORDERED: CHOL500021 PO (22:14)
[2017-10-23] MEDS ORDERED: CYAN10002 IM (22:14)
[2017-10-23] MEDS ORDERED: DIVA500T17 PO (22:16)
[2017-10-23] MEDS ORDERED: LISI-334 PO (22:18)
[2017-10-23] MEDS ORDERED: MAG355OR17 PO (22:21)
[2017-10-23] MEDS ORDERED: METH29OI TP (22:22)
[2017-10-23] MEDS ORDERED: METO50TA6 PO (22:22)
[2017-10-23] MEDS ORDERED: MAGN2400 PO (22:22)
[2017-10-23] MEDS ORDERED: PNV1TABL25 PO (22:23)
[2017-10-23] MEDS ORDERED: TRAZ50TA15 PO ×2 (22:25)
--- NOTE | 2017-10-24 01:10 | PN ---
DATE: 10/22/2017 This late entry 10/22/2017 covers elements not covered in my initial note 10/22/2017. The patient slept 6-1/2 hours previous evening, somewhat anxious, received Klonopin at 9:20 a.m. He is still obsessive with some mood lability evident. A careful review of his history was reflective of symptoms of depression, obsessiveness, anxiety, and some mood lability, the latter suggestive of bipolar 1 disorder, unspecified, processed this at length with him. REVIEW OF SYSTEMS: No CV, , pulmonary, eye, ENT system symptoms on review. He minimizes any psychiatric symptoms, wanting to be discharged and we processed at length. MENTAL STATUS EXAM: Reasonably oriented. Speech is coherent, pressured. Abstraction fair, computation impaired, language function intact, attention span short. Mood and affect somewhat labile, anxious. LABORATORY DATA: Reviewed. IMPRESSION: Major depressive disorder, posttraumatic stress disorder, probable bipolar 1 disorder, unspecified. Rest unchanged. Status post overdose tramadol. PLAN: Start Depakote ER 500 mg p.o. at bedtime. Check CBC, CMP, valproic acid level in 3 days. Maintain rest of the psychotropics as before. Clomipramine level will be completed on this Saturday according to message from lab. MAN Rosalino COPELAND MD DR: JEANNIE/dheeraj JOB#: [id number] / [id number]
[2017-10-24] MEDS ORDERED: DEXTROSE ORAL GEL 15 GM TUBE. ONE (01:52)
[2017-10-24] MEDS ORDERED: DEXTROSE ORAL GEL 15 GM TUBE. PO PRN (02:00)
[2017-10-24] MEDS: LEVOTHYROXINE 75 MCG TABLET PO SCH (04:46)
[2017-10-24 06:13] VITALS: BP 160/73
[2017-10-24] MEDS: IPRATRPIUM/ALBUTEROL 0.5/2.5MG 3 ML NEBU. NEB SCH ×2 (08:00→10:11)
[2017-10-24] MEDS: cloNIDine HCL 0.1 MG TABLET PO SCH (08:09)
[2017-10-24] MEDS: ASPIRIN ENTERIC COATED 81 MG TABLET.DR. PO SCH (08:09)
[2017-10-24] MEDS: CYANOCOBALAMIN (VITAMIN B-12) 1,000 MCG/ML VIAL IM SCH (08:09)
[2017-10-24] MEDS: metFORMIN 500 MG TABLET PO SCH (08:09)
[2017-10-24 08:10] VITALS: BP 160/73
[2017-10-24] MEDS: LISINOPRIL 20 MG TABLET PO SCH (08:10)
[2017-10-24] MEDS: FUROSEMIDE 20 MG TABLET PO SCH (08:10)
[2017-10-24] MEDS: hydroCHLOROthiazide 12.5 MG CAPSULE PO SCH (08:10)
[2017-10-24] MEDS: METOPROLOL TART IMMED RELEASE 50 MG TABLET PO SCH (08:10)
[2017-10-24] MEDS: ARIPiprazole 15 MG TABLET PO SCH (08:20)
[2017-10-24] MEDS: NICOTINE 7MG PATCH. TD SCH (08:20)
[2017-10-24] MEDS: CLOMIPRAMINE HCL 75 MG PO SCH (08:23)
[2017-10-24] MEDS: PRENATAL MULTIVITAMIN TABLET. PO SCH (08:25)
[2017-10-24] MEDS: TAMSULOSIN 0.4 MG CAP.ER.24H. PO SCH (08:26)
[2017-10-24] MEDS: INSULIN DETEMIR 300 UNITS/3 ML INSULN.PEN. SQ SCH (08:27)
--- NOTE | 2017-10-24 18:48 | PDOC ---
Exam Note: Darren Note: Please also refer to the separate dictated note~for this date of service dictated separately.~Patient seen individually. Discussed the patient with Nursing staff reviewed the chart.~Reviewed interim history and current functioning. Reviewed vital signs,~Labs/ Radiology~and current medications noted below. Continue current treatment with the changes noted in the dictated addendum note Assessment: Vital Signs: Vital Signs Date Time Temp Pulse Resp B/P (MAP) Pulse Ox O2 Delivery O2 Flow Rate FiO2 10/24/17 10:11 98 Room Air 10/24/17 08:10 87 160/73 10/24/17 06:13 97.2 18 I&O Intake and Output 10/24/17 07:00 Intake Total 1740 ml Balance 1740 ml Intake Oral 1740 ml # Voids 1 # Bowel Movements 1 Labs: Laboratory Tests Test 10/23/17 19:13 10/24/17 01:46 10/24/17 02:01 10/24/17 07:29 Glucose (Fingerstick) 133 mg/dL (70-99) H 35 mg/dL (70-99) *L 80 mg/dL (70-99) 109 mg/dL (70-99) H Current Medications: Meds: Current Medications Acetaminophen (Tylenol) 650 mg PRN Q6HRS PRN PO PAIN / TEMP; Start 10/20/17 at 00:30; Stop 10/24/17 at 15:33; Status DC Multi-Ingredient Ointment (Analgesic [place]) 1 [place] PRN QID PRN TP MUSCLE PAIN; Start 10/20/17 at 00:30; Stop 10/24/17 at 15:33; Status DC Al Hydroxide/Mg Hydroxide (Mylanta Plus Xs) 15 ml PRN AFTMEALHC PRN PO DYSPEPSIA Last administered on 10/20/17 03:39; Start 10/20/17 at 00:30; Stop 10/24/17 at 15:33; Status DC Magnesium Hydroxide (Milk Of Magnesia) 2,400 mg PRN QHS PRN PO CONSTIPATION; Start 10/20/17 at 00:30; Stop 10/24/17 at 15:33; Status DC Clonazepam (KlonoPIN) 1 mg PRN TID PRN PO ANXIETY / AGITATION Last administered on 10/23/17 17:02; Start 10/20/17 at 00:30; Stop 10/24/17 at 15 :33; Status DC Aripiprazole (Abilify) 30 mg DAILY PO Last administered on 10/24/17 08:20; Start 10/20/17 at 09:00; Stop 10/24/17 at 15:33; Status DC Melatonin 3 mg PRN QHS PRN PO INSOMNIA Last administered on 10/23/17 22:52; Start 10/20/17 at 01:00; Stop 10/24/17 at 15:33; Status DC Aspirin (Aspirin Enteric Coated) 81 mg DAILY PO Last administered on 08:09; Start 10/20/17 at 09:00; Stop 10/24/17 at 15:33; Status DC Atorvastatin Calcium (Lipitor) 10 mg QHS PO Last administered on 10/23/17 19: 56; Start 10/20/17 at 21:00; Stop 10/24/17 at 15:33; Status DC Furosemide (Lasix) 20 mg DAILY PO Last administered on 10/24/17 08:10; Start 10/20/17 at 09:00; Stop 10/24/17 at 15:33; Status DC Levothyroxine Sodium (Synthroid) 75 mcg DAILY07 PO Last administered on 04:46; Start 10/20/17 at 07:00; Stop 10/24/17 at 15:33; Status DC Loperamide HCl (Imodium) 2 mg PRN Q2HR PRN PO DIARRHEA; Start 10/20/17 at 00: 30; Stop 10/24/17 at 15:33; Status DC Metformin HCl (Glucophage) 1,000 mg BIDWMEALS PO Last administered on 08:09; Start 10/20/17 at 08:00; Stop 10/24/17 at 15:33; Status DC Metoprolol Tartrate (Lopressor) 50 mg BID PO Last administered on 10/24/17 08 :10; Start 10/20/17 at 09:00; Stop 10/24/17 at 15:33; Status DC Nicotine (Nicoderm Cq 7mg) 1 patch DAILY TD Last administered on 10/24/17 08: 20; Start 10/20/17 at 09:00; Stop 10/24/17 at 15:33; Status DC Tamsulosin HCl (Flomax) 0.4 mg DAILY PO Last administered on 10/24/17 08:26; Start 10/20/17 at 09:00; Stop 10/24/17 at 15:33; Status DC Clomipramine HCl (Anafranil) 375 mg DAILY PO Last administered on 10/21/17 09 :34; Start 10/20/17 at 09:00; Stop 10/21/17 at 13:57; Status DC Clonidine HCl (Catapres) 0.3 mg BID PO Last administered on 10/20/17 08:02; Start 10/20/17 at 09:00; Stop 10/20/17 at 14:34; Status DC Fenofibrate (Tricor) 145 mg QHS PO Last administered on 10/23/17 19:57; Start 10/20/17 at 21:00; Stop 10/24/17 at 15:33; Status DC Insulin Detemir (Levemir) 110 units BID SQ Last administered on 10/21/17 09: 37; Start 10/20/17 at 09:00; Stop 10/21/17 at 17:23; Status DC Lisinopril (Prinivil) 20 mg BID PO Last administered on 10/24/17 08:10; Start 10/20/17 at 09:00; Stop 10/24/17 at 15:33; Status DC Non-Formulary Medication 18 mcg DAILY IH ; Start 10/20/17 at 09:00; Status UNV Hydrochlorothiazide (Microzide) 12.5 mg BID PO Last administered on 10/24/17 08:10; Start 10/20/17 at 09:00; Stop 10/24/17 at 15:33; Status DC Albuterol/ Ipratropium (Duoneb) 3 ml RTQID NEB Last administered on 10/24/17 10:11; Start 10/20/17 at 08:00; Stop 10/24/17 at 15:33; Status DC Clonidine HCl (Catapres) 0.3 mg TID PO Last administered on 10/24/17 08:09; Start 10/20/17 at 21:00; Stop 10/24/17 at 15:33; Status DC Non-Formulary Medication 5 ea DAILY PO Last administered on 10/22/17 08:06; Start 10/22/17 at 09:00; Stop 10/22/17 at 11:26; Status DC Prenat Multivit/ [place]/Iron/Folic Ac (Multivitamin ) 1 tab DAILYBFRLUN PO Last administered on 10/24/17 08:25; Start 10/22/17 at 11:30; Stop 10/24 at 15:33; Status DC Cyanocobalamin (Vitamin B-12) 1,000 mcg DAILY IM Last administered on 08:09; Start 10/21/17 at 17:30; Stop 10/24/17 at 15:33; Status DC Cyanocobalamin (Vitamin B-12) 1,000 mcg [id number] IM ; Start 11/18/17 at 09:00; Stop 11/18/17 at 09:00; Status DC Vitamin D (Vitamin D3) 50,000 unit WEEKLY PO Last administered on 10/21/17 17 :54; Start 10/21/17 at 17:30; Stop 10/24/17 at 15:33; Status DC Insulin Detemir (Levemir) 90 units BID SQ Last administered on 10/22/17 19:59 ; Start 10/21/17 at 21:00; Stop 10/23/17 at 08:25; Status DC Trazodone HCl (Desyrel) 50 mg QHS PO Last administered on 10/23/17 19:56; Start 10/21/17 at 21:00; Stop 10/24/17 at 15:33; Status DC Trazodone HCl (Desyrel) 50 mg PRN QHS PRN PO INSOMNIA Last administered on 22:52; Start 10/21/17 at 18:30; Stop 10/24/17 at 15:33; Status DC Clomipramine HCl (Anafranil) 375 mg DAILY PO Last administered on 10/24/17 08 :23; Start 10/23/17 at 09:00; Stop 10/24/17 at 15:33; Status DC Clomipramine HCl (Anafranil) 375 mg STK-MED ONCE .ROUTE ; Start 10/22/17 at 09: 00; Stop 10/22/17 at 11:27; Status DC Divalproex Sodium (Depakote Er) 500 mg QHS PO Last administered on 10/23/17 19:55; Start 10/22/17 at 21:00; Stop 10/24/17 at 15:33; Status DC Insulin Detemir (Levemir) 75 units BID SQ Last administered on 10/24/17 08:27 ; Start 10/23/17 at 09:00; Stop 10/24/17 at 15:33; Status DC Glucose (Insta-Glucose) 15 gm STK-MED ONCE .ROUTE ; Start 10/24/17 at 01:52; Stop 10/24/17 at 01:53; Status DC Glucose (Insta-Glucose) 15 gm PRN Q15MIN PRN PO LOW BLOOD SUGAR; Start at 02:00; Stop 10/24/17 at 15:33; Status DC Active Scripts Active Reported Trazodone Hcl 50 Mg Tablet 50 Mg PO PRN QHS PRN Trazodone Hcl 50 Mg Tablet 50 Mg PO HS Tablet (Pnv Cmb#95/Ferrous Fumarate/Fa) 1 Each Tablet 1 Tab PO DAILYBFRLUN Metoprolol Tartrate 50 Mg Tablet 50 Mg PO BID Analgesic [place] (Methyl Salicylate/Menthol) 28 Gm Oint...g. 1 [place] TP PRN QID PRN Milk Of Magnesia (Magnesium Hydroxide) 2,400 Mg/10 Ml Oral.susp 2,400 Mg PO PRN QHS PRN Advanced Antacid Liquid (Mag Hydrox/Al Hydrox/Simeth) 355 Ml Oral.susp 15 Ml PO PRN AFTMEALHC PRN Lisinopril 20 Mg Tablet 20 Mg PO BID Divalproex Sodium Er (Divalproex Sodium) 500 Mg Tab.er.24h 500 Mg PO HS Cyanocobalamin Injection (Cyanocobalamin (Vitamin B-12)) 1,000 Mcg/1 Ml Vial 1, 000 Mcg IM [id number] D3-50 (Cholecalciferol (Vitamin D3)) 50,000 Unit Capsule 50,000 Unit PO WEEKLY Every Saturday Tylenol (Acetaminophen) 325 Mg Tablet 650 Mg PO PRN Q6HRS PRN Clonazepam 1 Mg Tablet 1 Mg PO PRN TID PRN Clomipramine Hcl 75 Mg Capsule 375 Mg PO DAILY Melatonin 3 Mg Tablet 3 Mg PO PRN QHS PRN Loperamide (Loperamide Hcl) 2 Mg Capsule 2 Mg PO PRN Q2HR PRN MDD 16mg Spiriva (Tiotropium [place]) 18 Mcg Cap.w.dev 18 Mcg IH DAILY Furosemide 20 Mg Tablet 20 Mg PO DAILY Trilipix (Fenofibric Acid (Choline)) 135 Mg Capsule.dr 135 Mg PO HS Clonidine Hcl 0.3 Mg Tablet 0.3 Mg PO TID Atorvastatin Calcium 10 Mg Tablet 10 Mg PO QHS Aspir-Low (Aspirin) 81 Mg Tablet.dr 81 Mg PO DAILY Abilify (Aripiprazole) 30 Mg Tablet 30 Mg PO DAILY Tamsulosin Hcl 0.4 Mg Cap.er.24h 0.4 Mg PO DAILY NICODERM CQ 7mg (Nicotine) 1 Each Patch.td24 1 Patch TD DAILY Metformin Hcl 500 Mg Tablet 1,000 Mg PO BIDWMEALS Levothyroxine Sodium 75 Mcg Tablet 75 Mcg PO DAILY07 Levemir (Insulin Detemir) 100 Unit/1 Ml Vial 75 Unit SQ BID I have reviewed the current psychotropics carefully including drug interactions. Risk benefit ratio favors no change other than as noted in my dictated progress note. Diagnosis: Problems: (1) Bipolar affective disorder, mixed (2) Major depressive disorder, recurrent episode (3) Impulse control disorder (4) Anxiety disorder LYNSEY COPELAND MD Oct 24, 2017 18:48
--- NOTE | 2017-10-25 18:45 | DS ---
DATE OF DISCHARGE: 10/24/2017 PSYCHIATRIC PROGRESS NOTE This late entry 10/24/2017 covers elements not covered in my initial note 10/24/2017. REASON FOR ADMISSION: Please refer to the admission history for details. Briefly, the patient is a 72-year-old male referred to us from the Emergency Room at [facility] where he presented from home, status post overdose of tramadol 35-40 tablets in a suicide attempt after he had reduced his antidepressants and Anafranil that he was taking via the [facility] in [place], [place]. SIGNIFICANT FINDINGS AND CLINICAL COURSE: Following admission, the patient was seen daily individually by myself, followed medically per Dr. Brown/Dr Swanson. The patient remains somewhat depressed initially, denied suicidal ideation, was feeling sorry about his overdose. Adjustments were made in his psychotropics. He was maintained on clomipramine 375 daily and shortly after he was discharged, the blood level came back above the therapeutic limit and he was advised as an outpatient to reduce the clomipramine down to 300 mg daily. He was also on Abilify 30 mg a day, Klonopin 1 mg t.i.d. p.r.n., melatonin 3 mg at bedtime p.r.n., trazodone 50 mg at bedtime, may repeat x 1 for insomnia, Depakote ER 500 mg p.o. at bedtime was initiated because further review of his history was suggestive of a possible diagnosis of bipolar disorder, unspecified. Labs level on the Depakote were not received back prior to the patient's discharge as he was insistent on an early discharge unwilling to continue inpatient stay as we had recommended. Nevertheless, prior to discharge, there was no suicidal ideation. Mood was improved overall. He was safe to return to outpatient treatment. REVIEW OF SYSTEMS: Ambulation impaired. No CV, , pulmonary, eye, ENT system symptoms on review. MENTAL STATUS EXAM: Reasonably oriented. Speech coherent, abstraction fair, computation somewhat impaired, language function intact, attention span fair. Mood and affect improved. FINAL DIAGNOSES: Major depressive disorder, recurrent, in partial remission; probable bipolar 1 disorder, unspecified; posttraumatic stress disorder; anxiety disorder, unspecified; obsessive compulsive disorder. Rest of the diagnoses, unchanged from admission. DISCHARGE MEDICATIONS: Please refer to the EMRAD. DISCHARGE INSTRUCTIONS: He would be going to the day program at the [facility]. Outpatient psychiatric followup at the [facility]. MAN Rosalino COPELAND MD DR: JEANNIE/dheeraj JOB#: [id number] / [id number]
--- NOTE | 2017-10-26 06:53 | PN ---
DATE: 10/23/2017 This is a late entry 10/23/2017 covers elements not covered in my initial note 10/23/2017. I met with the patient in the evening of 10/23/2017. Reviewed the patient's history again and he was able to share symptoms of PTSD he has experienced in the past including flashbacks, being hyper alert, sleep problems, anxiety. Otherwise, on the unit he has been fairly stable with no suicidal ideation. No CV, , pulmonary, eye, ENT system symptoms on review. MENTAL STATUS EXAM: Reasonably oriented. Speech is coherent, pleasant, verbal, very fixated on wanting to be discharged in the next day or so. Able to verbalize acceptance of going to the day program and thoroughly promising not to ever attempt to hurt himself again or reduce his psychotropics on the advice by the psychiatrist. Processed this with him. Speech coherent, abstraction fair, computation impaired, language function intact, attention span short. Mood and affect showing improvement. LABORATORY DATA: Reviewed. IMPRESSION: Unchanged from initial note. PLAN: Continue psychotropics mentioned in my initial note with possible discharge on 10/24/2017. MAN Rosalino COPELAND MD DR: JEANNIE/dheeraj JOB#: [id number] / [id number]
[2017-11-18] MEDS ORDERED: CYANOCOBALAMIN (VITAMIN B-12) 1,000 MCG/ML VIAL IM SCH (09:00)
== END 2017-10-24 10:50 | disposition home health service (06) | DRG 885 ==
LOC: EEVIPCON → GEROPSY 10-20 00:25
PROVIDERS: ADMIT Psychiatry & Neurology Psychiatry; ATTEND Psychiatry & Neurology Psychiatry
DX: F31.60 Bipolar disorder, current episode mixed, unspecified (principal); E11.9 Type 2 diabetes mellitus without complications; J44.9 Chronic obstructive pulmonary disease, unspecified; E03.9 Hypothyroidism, unspecified; E78.5 Hyperlipidemia, unspecified; F42.9 Obsessive-compulsive disorder, unspecified; F43.10 Post-traumatic stress disorder, unspecified; F63.9 Impulse disorder, unspecified; F10.11 Alcohol abuse, in remission; F41.9 Anxiety disorder, unspecified; G47.00 Insomnia, unspecified; I10 Essential (primary) hypertension; Z79.899 Other long term (current) drug therapy; Z82.0 Family history of epilepsy and other diseases of the nervous system; Z82.49 Family history of ischemic heart disease and other diseases of the circulatory system; Z85.048 Personal history of other malignant neoplasm of rectum, rectosigmoid junction, and anus; Z85.118 Personal history of other malignant neoplasm of bronchus and lung; Z85.820 Personal history of malignant melanoma of skin; Z91.19 Patient's noncompliance with other medical treatment and regimen; Z91.5 Personal history of self-harm; Z93.3 Colostomy status; Z90.49 Acquired absence of other specified parts of digestive tract
CPT/HCPCS: 36415; 70450; 80053; 80061; 81001; 82306; 82607; 82947; 83036; 83540; 83550; 83735; 84436; 84443; 84480; 85025; 86592; 86593; 93005; 94640; 99406; J1815; J3420; J7620